=== PATIENT | female | born 1980 | race Caucasian/White ===

== ENCOUNTER 2017-10-27 04:19 | Emergency (ER) | payer OTHER ==
[2017-10-27 04:27] VITALS: RESP 18; TEMP 98.2
--- NOTE | 2017-10-27 05:28 | ED ---
ENT HPI - General Chief complaint: Dental/Oral Stated complaint: Jaw Pain Time Seen by Provider: 10/27/17 04:33 Source: patient Mode of arrival: ambulatory Limitations: no limitations - History of Present Illness Initial comments: This patient is 37-year-old woman who presents with complaint of post surgical left mandibular pain. The patient states that she had ORIF of her left mandible which had been fractured due to trauma. The procedure occurred at her home state of [place], and she came to [place] to attend a family . Patient states that she had forgotten to bring her prescription analgesics here with her. She is not having fevers or chills. She is not having increased swelling. MD complaint: other (Mental pain) -: days(s) Severity: moderate Quality: aching Consistency: constant Improves with: none Worsens with: none - Related Data Previous Rx's Medication Instructions Recorded HYDROcodone/APAP 7.5-325MG [[place] 1 tab PO Q6HR PRN #12 tab 10/27/17 7.5-325] Hydrocortisone Cream 1 applic TOPICAL BID #15 gm 10/27/17 [Hydrocortisone 1% Cream] Allergies Allergy/AdvReac Type Severity Reaction Status Date / Time No Known Allergies Allergy Verified 10/27/17 04:27 Review of Systems ROS Statement: Those systems with pertinent positive or pertinent negative responses have been documented in the HPI. ROS Other: All systems not noted in ROS Statement are negative. Constitutional: Denies: fever, chills Eyes: Denies: eye pain, vision change ENT: Reports: other (Mandibular pain) Respiratory: Denies: cough, dyspnea Cardiovascular: Denies: palpitations Gastrointestinal: Denies: abdominal pain Skin: Reports: rash. Denies: lesions Neurological: Denies: headache Past Medical History Past Medical History: No Reported History History of Any Multi-Drug Resistant Organisms: None Reported Additional Past Surgical History / Comment(s): jaw repair, plate placement due to Fx in two places. Past Psychological History: No Psychological Hx Reported Smoking Status: Current every day smoker Past Alcohol Use History: Occasional Past Drug Use History: None Reported General Exam Limitations: no limitations General appearance: alert, in no apparent distress Head exam: Present: atraumatic, normocephalic Eye exam: Present: normal appearance, PERRL, EOMI. Absent: scleral icterus, conjunctival injection ENT exam: Present: mucous membranes moist, TM's normal bilaterally, normal external ear exam, other (What I am able to visualize of the patient's surgical incisions have a normal postoperative appearance, without erythema or purulent drainage. Sutures are intact. The patient's mandible is wired. No mandibular swelling) Neck exam: Present: normal inspection, full ROM. Absent: tenderness, meningismus, lymphadenopathy Respiratory exam: Present: normal lung sounds bilaterally. Absent: respiratory distress, wheezes, rales, rhonchi, stridor Cardiovascular Exam: Present: regular rate, normal rhythm, normal heart sounds. Absent: systolic murmur, diastolic murmur, rubs, gallop Neurological exam: Present: alert Skin exam: Present: warm, dry, intact, other (Patient does have an area of contact dermatitis to the right abdominal wall.) Course Vital Signs 10/27/17 04:20 Temperature 98.2 F Pulse Rate 103 H Respiratory 18 Rate Blood Pressure 109/78 O2 Sat by Pulse 98 Oximetry Medical Decision Making - Medical Decision Making Patient is a 37-year-old woman who is having postoperative mandibular pain. No signs or symptoms of postoperative infection. Patient's maps report is negative , and therefore will be given small amount of narcotic analgesic. We discussed appropriate follow-up and return parameters. Disposition Clinical Impression: Mandible fracture, Dermatitis Disposition: HOME SELF-CARE Condition: Good Instructions: Jaw Fracture in Adults (ED), Contact Dermatitis (ED) Prescriptions: HYDROcodone/APAP 7.5-325MG [[place] 7.5-325] 1 tab PO Q6HR PRN #12 tab PRN Reason: Pain Hydrocortisone Cream [Hydrocortisone 1% Cream] 1 applic TOPICAL BID #15 gm Referrals: None,Stated [Primary Care Provider] - 1-2 days
[2017-10-27] MEDS ORDERED: HYDROcodone/APAP 7.5-325MG 1 EACH TAB PO ONE (05:31)
[2017-10-27 05:37] VITALS: BP 124/65; PULSE 88
== END 2017-10-27 05:43 | disposition home or self-care (01) ==
LOC: EC 04:19
DX: S02.609D Fracture of mandible, unspecified, subsequent encounter for fracture with routine healing (principal); L30.9 Dermatitis, unspecified; F17.200 Nicotine dependence, unspecified, uncomplicated
CPT/HCPCS: 99283

== ENCOUNTER → 2018-11-19 | Outpatient (CLI) | payer BC ==
[2018-11-19 16:41] LABS: Basophils # (A) 0.1 k/uL (0-0.2); Basophils % (A) 1 %; Eosinophils # (A) 0.2 k/uL (0-0.7); Eosinophils % (A) 2 %; HCT 38.8 % (34.0-46.0); HGB 12.7 gm/dL (11.4-16.0); Lymphocytes # (A) 2.5 k/uL (1.0-4.8); Lymphocytes % (A) 23 %; MCH 28.2 pg (25.0-35.0); MCHC 32.7 g/dL (31.0-37.0); MCV 86.4 fL (80.0-100.0); Mean Platelet Volume 8.3; Monocytes # (A) 0.6 k/uL (0-1.0); Monocytes % (A) 5 %; Neutrophils # (A) 7.4 k/uL (1.3-7.7); Neutrophils % (A) 68 %; Platelet Count 276 k/uL (150-450); RBC 4.49 m/uL (3.80-5.40); RDW 15.2 % (11.5-15.5)
== END | disposition home or self-care (01) ==
LOC: LABPAT 15:08
PROVIDERS: ATTEND Obstetrics & Gynecology
DX: Z01.812 Encounter for preprocedural laboratory examination (principal); D06.9 Carcinoma in situ of cervix, unspecified
CPT/HCPCS: 36415; 85025

== ENCOUNTER 2018-12-01 07:27 | Day surgery (SDC) | payer BC ==
[2018-11-27 12:23] VITALS: BMI 26.6
[~2018-12-01 07:27] MED LIST: HYDROmorphone 0.5 MG/0.5 ML SYRINGE IVP PRN; LACTATED RINGERS 1,000 ML IV SCH; LIDOCAINE 1% 20 ML VIAL (10MG/ML) FOR IV START INTRADERMA PRN; ONDANSETRON 4 MG/2 ML VIAL IVP ONE
[2018-12-01] MEDS ORDERED: DEXAMETHASONE SOD PHOSPHATE 10 MG/ML 1 ML VIAL IV ONE (08:09)
[2018-12-01] MEDS ORDERED: MIDAZOLAM (PF) 2 MG/2 ML VIAL IVP ONE (08:10)
[2018-12-01] MEDS ORDERED: PROPOFOL 10 MG/ML 20 ML VIAL IV ONE (09:11)
[2018-12-01] MEDS ORDERED: KETOROLAC 30 MG/ML 1 ML VIAL ONE (09:11)
[2018-12-01] MEDS ORDERED: MIDAZOLAM 2 MG/2 ML VIAL ONE (09:11)
[2018-12-01] MEDS ORDERED: fentaNYL (PF) 50 MCG/ML 2 ML AMP ONE (09:11)
[2018-12-01] MEDS ORDERED: LIDOCAINE 1% INJ 10MG/ML (20 ML MDV) ONE (09:11)
[2018-12-01] MEDS: ceFAZolin IN SWFI 2 GM/20 ML SYRINGE IVP ONE ×2 (09:12→09:17)
[2018-12-01] MEDS ORDERED: LIDOCAINE 1%-EPI 1:100,000 20 ML VIAL SUBMUCOSAL ONE ×2 (09:13→09:32)
[2018-12-01] MEDS ORDERED: IODINE/POTASS IOD (LUGOLS) 8 ML BTL TOPICAL ONE (09:34)
[2018-12-01] MEDS ORDERED: FERRIC SUBSULFATE (MONSELS) JAR TOPICAL ONE (09:41)
[2018-12-01] MEDS ORDERED: LACTATED RINGERS 1,000 ML IV ONE (09:48)
[2018-12-01 10:03] VITALS: TEMP 97
[2018-12-01 11:06] VITALS: RESP 18
[2018-12-01] MEDS ORDERED: ACETAMINOPHEN TAB 325 MG TAB PO ONE (11:10)
[2018-12-01 11:35] VITALS: BP 114/76; PULSE 78
--- NOTE | 2018-12-02 16:38 | P.OP ---
Date of Procedure: 12/01/18 Preoperative Diagnosis: ENRIQUE 3 Postoperative Diagnosis: ENRIQUE 3 Procedure(s) Performed: cervical cold knife cone biopsy Anesthesia: MAC Surgeon: Lisette Fuller Estimated Blood Loss (ml): 15 IV fluids (ml): 700 Urine output (ml): 50 Pathology: other (cervical cone biopsy) Condition: stable Disposition: PACU Indications for Procedure: ENRIQUE 3 of the endocervix on ECC Operative Findings: Normal appearing multipararous cervix without visible lesions Description of Procedure: Patient was met in preop area and all questions answered. Taken to OR where she was positioned, prepped and draped in lithotomy position after anesthesia was administered. Bladder drained for 100 mL clear urine. Weight speculum placed in vagina and cervix grasped with tenaculum. Paracervical block placed with 10 mL lidocaine plus epi. Stay sutures placed at 3 and 9 o'clock, 2-0 vicryl. Lugols solution applied to identify transformation zone. 11 blade scalpal used to excise cervix in cone like fashion. Biopsy handed off got pathology specimen. Electrocautary utilized to obtain hemostasis in base of biopsy. Moncels solution with surgicel placed in biopsy base. Hemostasis noted. Sutures removed. Ins truments removed from vagina. Patient awoken from anesthesia and transported to recovery in good condition. All counts reported as correct.
== END 2018-12-01 11:56 | disposition home or self-care (01) ==
LOC: OR 07:27
PROVIDERS: ATTEND Obstetrics & Gynecology
DX: D06.9 Carcinoma in situ of cervix, unspecified (principal); F17.210 Nicotine dependence, cigarettes, uncomplicated; Z79.3 Long term (current) use of hormonal contraceptives; Z83.3 Family history of diabetes mellitus
CPT/HCPCS: 81025; 88307; 57520; J2250 ×2; J1100; J2405; J2001; J3010; J1885; J2704; J1170; J0690